=== PATIENT | female | born 1985 | race Caucasian/White ===

== ENCOUNTER 2016-08-08 23:24 | Emergency (ER) | payer SELFPAY ==
--- NOTE | 2016-08-08 23:34 | ER Document Report ---
ED Medical Screen (RME) - General Stated Complaint: CHEST PAIN Time seen by provider: 23:32 Mode of Arrival: Wheelchair Information source: Patient Notes: 31-year-old female presents to the rapid heartbeat and chest pain started just before she came. She states she has a daughter has SVT mother has A. fib. I have greeted and performed a rapid initial assessment of this patient. A comprehensive ED assessment and evaluation of the patient, analysis of test results and completion of medical decision making process will be conducted by an additional ED providers. - Related Data Allergies/Adverse Reactions: No Known Allergies Allergy (Unverified 08/08/16 23:30)
[2016-08-08] MEDS ORDERED: ADENOSINE INJ/PF 6 MG/2 ML SDV IV ONE ×3 (23:46→23:53)
[2016-08-08] MEDS ORDERED: NORMAL SALINE 1000 ML 1,000 ML IV PRN (23:53)
--- NOTE | 2016-08-08 23:55 | ER Document Report ---
ED Cardiac - General Chief Complaint: Chest Pain Stated Complaint: CHEST PAIN Time seen by provider: 23:55 Mode of Arrival: Ambulatory Information source: Patient TRAVEL OUTSIDE OF THE [place] IN LAST 30 DAYS: No - HPI Patient complains to provider of: Chest pain, Palpitations Was the onset of pain: Sudden Is the pain a: New problem Quality of pain: Pressure Chest pain precipitating factors: At Rest Cardiac risk factors: None Associated symptoms: Palpitations Exacerbated by: Denies Relieved by: Nothing Similar symptoms previously: No Recently seen / treated by doctor: No Notes: Patient is a 31-year-old female with no past medical history who presents to the emergency room complaining of rapid heart rate that started around 10:50 PM while she was at rest, she denies a history of similar symptoms previously she does report some chest pressure associated with the rapid heart rate, patient denies smoking, drinking or drug usage, she takes no [id number] medications or supplements, she does not consume energy drinks or caffeinated beverages, otherwise her day was pretty much routine, she reports that her daughter has a history of supraventricular tachycardia - Related Data Allergies/Adverse Reactions: No Known Allergies Allergy (Unverified 08/08/16 23:30) Past Medical History - General Information source: Patient - Social History Smoking Status: Never Smoker Chew tobacco use (# tins/day): No Frequency of alcohol use: None Drug Abuse: None Family History: Other - Daughter has a history of supraventricular tachycardia Renal/ Medical History: Denies: Hx Peritoneal Dialysis Review of Systems - Review of Systems Constitutional: No symptoms reported EENT: No symptoms reported Cardiovascular: See HPI Respiratory: No symptoms reported Gastrointestinal: No symptoms reported Genitourinary: No symptoms reported Female Genitourinary: No symptoms reported Musculoskeletal: No symptoms reported Skin: No symptoms reported Hematologic/Lymphatic: No symptoms reported Neurological/Psychological: No symptoms reported -: Yes All other systems reviewed and negative Physical Exam - Vital signs Vitals: Temp Pulse Resp BP Pulse Ox 97.9 F 184 H 20 132/70 H 100 08/08/16 23:32 08/08/16 23:32 08/08/16 23:32 08/08/16 23:32 08/08/16 23:32 Interpretation: Tachycardic - General General appearance: Appears well, Alert - HEENT Head: Normocephalic, Atraumatic Eyes: Normal Pupils: PERRL - Respiratory Respiratory status: No respiratory distress Chest status: Nontender Breath sounds: Normal Chest palpation: Normal - Cardiovascular Rhythm: Regular, Tachycardia Heart sounds: Normal auscultation Murmur: No - Abdominal Inspection: Normal Distension: No distension Bowel sounds: Normal Tenderness: Nontender Organomegaly: No organomegaly - Back Back: Normal, Nontender - Extremities General upper extremity: Normal inspection, Nontender, Normal color, Normal ROM , Normal temperature General lower extremity: Normal inspection, Nontender, Normal color, Normal ROM , Normal temperature, Normal weight bearing. No: Anita's sign - Neurological Neuro grossly intact: Yes Cognition: Normal Orientation: AAOx4 Michelle Coma Scale Eye Opening: Spontaneous Michelle Coma Scale Verbal: Oriented Michelle Coma Scale Motor: Obeys Commands [place] Coma Scale Total: 15 Speech: Normal Motor strength normal: LUE, RUE, LLE, RLE Sensory: Normal - Psychological Associated symptoms: Normal affect, Normal mood - Skin Skin Temperature: Warm Skin Moisture: Dry Skin Color: Normal Course - Re-evaluation Re-evalutation: 08/09/16 02:20 Lab and imaging findings discussed with patient at bedside, after one dose of adenosine SVT was reduced to a sinus tachycardia, patient was advised to follow- up with a bindery machine setter/set up operator within the next 1-2 days or return if symptoms worsen, patient acknowledges understanding and agreement with this plan 08/09/16 03:57 Vagal maneuvers and carotid massage were attempted prior to administering adenosine - Vital Signs Vital signs: Temp Pulse Resp BP Pulse Ox 97.9 F 184 H 23 H 114/82 98 08/08/16 23:32 08/08/16 23:32 08/09/16 03:01 08/09/16 03:01 08/09/16 03:01 - Laboratory Result Diagrams: 08/08/16 23:44 08/08/16 23:44 Laboratory results interpreted by me: 08/08/16 08/08/16 08/09/16 23:44 23:44 01:15 WBC 12.4 H Absolute Neutrophils 8.9 H Total Protein 8.8 H Urine Blood SMALL H Ur Leukocyte Esterase LARGE H - Diagnostic Test Radiology reviewed: Image reviewed, Reports reviewed - EKG Interpretation by Me Rate: Tachycardia Rhythm: SVT Additional EKG results interpreted by me: 08/09/16 02:21 Repeat EKG is normal sinus rhythm at a rate of 117 Critical Care Note - Critical Care Note Total time excluding time spent on procedures (mins): 30 Comments: Patient arrived with supraventricular tachycardia with a heart rate in the 180- 190 range, requiring one dose of adenosine Discharge - Discharge Clinical Impression: Supraventricular tachycardia Condition: Stable Disposition: HOME, SELF-CARE Instructions: Paroxysmal Supraventricular Tachycardia ([facility]) Additional Instructions: Follow-up with a bindery machine setter/set up operator within the next 1-2 days. Return to the emergency room immediately if symptoms worsen or any additional concerns. Forms: Return to Work Referrals: UMESH TEJADA MD [ACTIVE STAFF] - Follow up as needed SHARON GRIFFIN MD [ACTIVE STAFF] - Follow up as needed
[2016-08-09 00:23] LABS: ABSOLUTE EOSINOPHILS # (AUTO) 0.1 10^3/uL (0.0-0.6); ABSOLUTE LYMPHOCYTES (AUTO) 2.4 10^3/uL (0.5-4.7); ABSOLUTE MONOCYTES (AUTO) 0.9 10^3/uL (0.1-1.4); ABSOLUTE NEUT (AUTO) 8.9 10^3/uL (1.7-8.2); BASOPHILS % (AUTO) 0.3 % (0-2); HEMATOCRIT 44.7 % (36.0-47.0); HEMOGLOBIN 14.9 g/dL (12.0-15.5); LYMPHOCYTES % (AUTO) 19.7 % (13-45); MEAN CORPUSCULAR HGB CONC 33.4 g/dL (32.0-36.0); MEAN CORPUSCULAR VOLUME 90 fl (80-97); MONOCYTES % (AUTO) 7.1 % (3-13); RED BLOOD COUNT 4.97 10^6/uL (3.72-5.28); RED CELL DISTRIBUTION WIDTH 13.4 % (11.5-14.0); SEGMENTED NEUTROPHILS % (AUTO) 71.9 % (42-78); WHITE BLOOD COUNT 12.4 10^3/uL (4.0-10.5)
[2016-08-09 00:36] LABS: ALANINE AMINOTRANSFERASE 29 U/L (9-52); ALBUMIN 4.7 g/dL (3.5-5.0); ALKALINE PHOSPHATASE 120 U/L (38-126); ANION GAP 11 (5-19); ASPARTATE AMINO TRANSFERASE 31 U/L (14-36); BILIRUBIN,TOTAL 0.8 mg/dL (0.2-1.3); BLOOD UREA NITROGEN 11 mg/dL (7-20); CALCIUM 9.7 mg/dL (8.4-10.2); CARBON DIOXIDE 28 mmol/L (22-30); CHLORIDE 102 mmol/L (98-107); CREATINE KINASE 50 U/L (30-135); CREATININE RESULT 0.69 mg/dL (0.52-1.25); GLUCOSE 95 mg/dL (75-110); POTASSIUM 3.8 mmol/L (3.6-5.0); SODIUM 141.4 mmol/L (137-145); TOTAL PROTEIN 8.8 g/dL (6.3-8.2)
[2016-08-09 00:49] LABS: CREATINE KINASE MB < 0.22 ng/mL (<4.55); TROPONIN I < 0.012 ng/mL
[2016-08-09 01:35] LABS: APPEARANCE,URINE SLIGHTLY-CLOUDY; BILIRUBIN,URINE NEGATIVE (NEGATIVE); GLUCOSE, URINE NEGATIVE (NEGATIVE); KETONES,URINE NEGATIVE (NEGATIVE); LEUKOCYTE ESTERASE,URINE LARGE (NEGATIVE); NITRITE,URINE NEGATIVE (NEGATIVE); PROTEIN,URINE NEGATIVE (NEGATIVE); URINE SPECIFIC GRAVITY 1.005; UROBILINOGEN,URINE NEGATIVE mg/dL (<2.0)
[2016-08-09 01:48] LABS: URINE BARBITURATES SCREEN NEGATIVE; URINE METHADONE SCREEN NEGATIVE; URINE OPIATES LOW NEGATIVE; URINE PHENCYCLIDINE SCREEN NEGATIVE
[2016-08-09 01:50] LABS: FREE T3 4.2 pg/mL (2.77-5.27)
[2016-08-09 02:03] LABS: THYROID STIMULATING HORMONE 2.76 uIU/mL (0.47-4.68)
[2016-08-09 03:23] VITALS: BP 114/82
--- NOTE | 2016-08-09 12:32 | EKG REPORT ---
SEVERITY:- OTHERWISE NORMAL ECG - SINUS TACHYCARDIA : Confirmed by: Marquita Simpson 09-Aug-2016 12:31:22
--- NOTE | 2016-08-09 12:32 | EKG REPORT ---
SEVERITY:- ABNORMAL ECG - SUPRAVENTRICULAR TACHYCARDIA REPOLARIZATION ABNORMALITY, PROB RATE RELATED : Confirmed by: Marquita Simpson 09-Aug-2016 12:31:29
== END 2016-08-09 03:01 | disposition home or self-care (01) ==
LOC: ER 23:24
DX: I47.1 Supraventricular tachycardia (principal); R07.89 Other chest pain; Z82.49 Family history of ischemic heart disease and other diseases of the circulatory system
CPT/HCPCS: 36415; 71020; 80053; 80307; 81001; 82550; 82553; 84439; 84443; 84481; 84484; 84703; 85025; 93005; 93010; 99291

== ENCOUNTER 2016-12-16 19:56 | Emergency (ER) | payer BC ==
[2016-12-16 21:55] VITALS: BP 146/85
[2016-12-16] MEDS ORDERED: MECLIZINE HCL 25 MG TABLET PO ONE (23:34)
--- NOTE | 2016-12-16 23:34 | ER Document Report ---
HPI - HPI Patient complains to provider of: dizzy lightheaded Onset: Other - 3 days Quality of pain: No pain Pain Level: Denies Context: Presents emergency department with complaints of feeling lightheaded and dizzy for the past 3 days. Denies fever vomiting nausea diarrhea. Reports she is not because she is not sexually active. She reports it happened to her one time before when she had inner ear infection. Patient also has a history of SVT. Associated Symptoms: None Exacerbated by: Denies Relieved by: Denies Similar symptoms previously: Yes - when she had ear infection Recently seen / treated by doctor: No - REPRODUCTIVE LMP: 11/19/2016 - DERM Skin Color: Normal Past Medical History - General Information source: Patient Last Menstrual Period: last month reports she is not sexually active - Social History Smoking Status: Unknown if Ever Smoked Cigarette use (# per day): No Frequency of alcohol use: None Drug Abuse: None Family History: Other - Daughter has a history of supraventricular tachycardia - Past Medical History Cardiac Medical History: Reports: Other - svt Renal/ Medical History: Denies: Hx Peritoneal Dialysis Past Surgical History: Reports: Hx Section, Hx Dilation and Curettage, Hx Gynecologic Surgery - d&C Vertical Provider Document - CONSTITUTIONAL Agree With Documented VS: Yes Exam Limitations: No Limitations General Appearance: WD/WN, No Apparent Distress - INFECTION CONTROL TRAVEL OUTSIDE OF THE [place] IN LAST 30 DAYS: No - HEENT HEENT: Atraumatic, Normal ENT Exam, Normocephalic, PERRLA. negative: Conjuctival Injection, Pharyngeal Exudate, Pharyngeal Tenderness, Pharyngeal Erythema, Tympanic Membrane Red, Tympanic Membrane Bulging - NECK Neck: Normal Inspection, Supple. negative: Lymphadenopathy-Left, Lymphadenopathy-Right - RESPIRATORY Respiratory: Breath Sounds Normal, No Respiratory Distress O2 Sat by Pulse Oximetry: 98 - CARDIOVASCULAR Cardiovascular: Regular Rate, Regular Rhythm - GI/ABDOMEN Gastrointestinal: Abdomen Soft, Abdomen Non-Tender - MUSCULOSKELETAL/EXTREMETIES Musculoskeletal/Extremeties: RICHARD MCGEE - NEURO Level of Consciousness: Awake, Alert, Appropriate Motor/Sensory: No Motor Deficit - DERM Integumentary: Warm, Dry Course - Re-evaluation Re-evalutation: 12/17/16 00:30 Patient reports she feels much better denies any dizziness ready to go home. Instructed on meclizine. Instructed to follow-up with primary care provider. - Vital Signs Vital signs: Temp Pulse Resp BP Pulse Ox 98.2 F 89 16 146/85 H 98 12/16/16 20:23 12/16/16 20:23 12/16/16 20:23 12/16/16 20:23 12/16/16 20:23 - EKG Interpretation by Me EKG shows normal: Sinus rhythm Discharge - Discharge Clinical Impression: Dizziness, Elevated blood pressure reading Condition: Stable Disposition: HOME, SELF-CARE Instructions: Meclizine ([facility]), Dizziness ([facility]) Additional Instructions: *You have been evaluated for dizziness and lightheaded feeling *Take medication as prescribed *Rest, stay hydrated *Follow up with a primary care provider within one week for recheck *Return to ED for worsening condition, changes, needs Monitor your blood pressure. Your blood pressure was elevated today. This may be because you were anxious, in pain or because you need medication. It is important to follow up with your primary care provider for full evaluation. Prescriptions: Meclizine HCl [Dramamine Less Drowsy] 25 mg PO BID #15 tablet Forms: Elevated Blood Pressure Referrals: NILO HERNÁNDEZ DO [Primary Care Provider] - Follow up in 1 week
--- NOTE | 2016-12-17 07:50 | EKG REPORT ---
SEVERITY:- NORMAL ECG - SINUS RHYTHM : Confirmed by: Marquita Simpson 17-Dec-2016 07:49:40
== END 2016-12-17 00:50 | disposition home or self-care (01) ==
LOC: ER 19:56
DX: R42 Dizziness and giddiness (principal); R03.0 Elevated blood-pressure reading, without diagnosis of hypertension
CPT/HCPCS: 93005; 93010; 99284

== ENCOUNTER 2017-04-02 13:11 | Emergency (ER) | payer BC, MEDICAID ==
--- NOTE | 2017-04-02 14:13 | ER Document Report ---
HPI - HPI Patient complains to provider of: dental pain Pain Level: 4 Context: 31 yo female c/o pain and swelling to left side of mouth x 2 weeks. no fever Associated Symptoms: None Exacerbated by: Denies Relieved by: Denies Similar symptoms previously: Yes Recently seen / treated by doctor: No - ROS Systems Reviewed and Negative: Yes All other systems reviewed and negative Past Medical History - General Information source: Patient - Social History Smoking Status: Never Smoker Chew tobacco use (# tins/day): No Frequency of alcohol use: None Drug Abuse: None Lives with: Family Family History: Reviewed & Not Pertinent, Other - Daughter has a history of supraventricular tachycardia - Medical History Medical History: Negative Renal/ Medical History: Denies: Hx Peritoneal Dialysis Psychiatric Medical History: Reports: Hx Attention Deficit Hyperactivity Disorder Past Surgical History: Reports: Hx Section, Hx Dilation and Curettage, Hx Gynecologic Surgery - d&C - Immunizations Hx Diphtheria, Pertussis, Tetanus Vaccination: Yes Vertical Provider Document - CONSTITUTIONAL Agree With Documented VS: Yes Exam Limitations: No Limitations - INFECTION CONTROL TRAVEL OUTSIDE OF THE [place] IN LAST 30 DAYS: No - HEENT HEENT: Atraumatic, PERRLA Mouth Diagram: 1 - + pain and gingival swelling - NECK Neck: Normal Inspection, Supple - RESPIRATORY Respiratory: Breath Sounds Normal O2 Sat by Pulse Oximetry: 99 - CARDIOVASCULAR Cardiovascular: Regular Rate, Regular Rhythm Course - Re-evaluation Re-evalutation: 04/02/17 14:10 H&P c/w dental infection. no airway compromise. no s/s ludwigs or peritonsillar abscess - Vital Signs Vital signs: Temp Pulse Resp BP Pulse Ox 98.9 F 80 17 152/101 H 99 04/02/17 13:22 04/02/17 13:22 04/02/17 13:22 04/02/17 13:22 04/02/17 13:22 Discharge - Discharge Clinical Impression: Dental infection Condition: Stable Disposition: HOME, SELF-CARE Instructions: Antibiotic Therapy ([facility]), Dental Infection or Abscess ([facility]), Oral Narcotic Medication ([facility]) Prescriptions: Hydrocodone/Acetaminophen [Camp 5-325 mg Tablet] 1 tab PO Q4H PRN #10 tablet PRN Reason: Penicillin V Potassium [Penicillin Vk 500 mg Tablet] 500 mg PO BID #20 tablet
[2017-04-02] MEDS ORDERED: PENICILLIN V POTASSIUM 500 MG TABLET PO ONE (14:17)
[2017-04-02] MEDS ORDERED: HYDROCODONE/ACETAMINOPHEN 5-325 MG TABLET PO ONE (14:18)
[2017-04-02 14:33] VITALS: BP 126/77
== END 2017-04-02 14:31 | disposition home or self-care (01) ==
LOC: ER 13:11
DX: K04.7 Periapical abscess without sinus (principal); K08.89 Other specified disorders of teeth and supporting structures; R22.0 Localized swelling, mass and lump, head
CPT/HCPCS: 99282; J3490

== ENCOUNTER 2017-06-12 13:25 | Emergency (ER) | payer MEDICAID ==
[2017-06-12 14:43] LABS: ABSOLUTE BASOPHILS # (AUTO) 0.1 10^3/uL (0.0-0.2); ABSOLUTE EOSINOPHILS # (AUTO) 0.1 10^3/uL (0.0-0.6); ABSOLUTE LYMPHOCYTES (AUTO) 1.4 10^3/uL (0.5-4.7); ABSOLUTE MONOCYTES (AUTO) 0.6 10^3/uL (0.1-1.4); ABSOLUTE NEUT (AUTO) 8.2 10^3/uL (1.7-8.2); BASOPHILS % (AUTO) 0.7 % (0-2); EOSINOPHILS % (AUTO) 1.1 % (0-6); HEMATOCRIT 41.9 % (36.0-47.0); HEMOGLOBIN 14.3 g/dL (12.0-15.5); LYMPHOCYTES % (AUTO) 13.8 % (13-45); MEAN CORPUSCULAR HEMOGLOBIN 30.1 pg (27.0-33.4); MEAN CORPUSCULAR HGB CONC 34.2 g/dL (32.0-36.0); MEAN CORPUSCULAR VOLUME 88 fl (80-97); MONOCYTES % (AUTO) 5.3 % (3-13); RED BLOOD COUNT 4.76 10^6/uL (3.72-5.28); RED CELL DISTRIBUTION WIDTH 13.7 % (11.5-14.0); SEGMENTED NEUTROPHILS % (AUTO) 79.1 % (42-78); WHITE BLOOD COUNT 10.4 10^3/uL (4.0-10.5)
[2017-06-12 14:49] LABS: AMORPHOUS SEDIMENT,URINE TRACE /HPF; APPEARANCE,URINE CLOUDY; BILIRUBIN,URINE NEGATIVE (NEGATIVE); GLUCOSE, URINE NEGATIVE (NEGATIVE); KETONES,URINE NEGATIVE (NEGATIVE); LEUKOCYTE ESTERASE,URINE LARGE (NEGATIVE); NITRITE,URINE NEGATIVE (NEGATIVE); PROTEIN,URINE NEGATIVE (NEGATIVE); URINE SPECIFIC GRAVITY 1.008
[2017-06-12 15:00] LABS: ANION GAP 9 (5-19); BLOOD UREA NITROGEN 9 mg/dL (7-20); CALCIUM 9.7 mg/dL (8.4-10.2); CARBON DIOXIDE 30 mmol/L (22-30); CHLORIDE 103 mmol/L (98-107); GLUCOSE 96 mg/dL (75-110); POTASSIUM 4.2 mmol/L (3.6-5.0); SODIUM 142.4 mmol/L (137-145)
--- NOTE | 2017-06-12 15:05 | ER Document Report ---
ED Cardiac - General Chief Complaint: Palpitations Stated Complaint: CHEST PAIN Time Seen by Provider: 06/12/17 13:58 Notes: Patient states that she has a history of SVT and has had to receive adenosine before. Today she had an episode of palpitations with her heart racing and she felt short of breath. Nothing made it better or worse. It lasted approximately 30 minutes. She states that she feels better now that she is in the emergency department but still has some shortness of breath. She denies smoking or any type of hormone use. No previous history of PEs or DVTs. Patient denies any significant chest pain. The symptoms are moderate. They were intermittent. There is no known radiation of the symptoms. Patient has not recently had any type of cough cold or congestion. No nausea vomiting or diarrhea. Patient states she did have an energy drink. TRAVEL OUTSIDE OF THE [place] IN LAST 30 DAYS: No - Related Data Allergies/Adverse Reactions: No Known Allergies Allergy (Verified 04/02/17 13:25) Home Medications: Current Home Medications Atomoxetine HCl [Strattera 60 mg Capsule] 60 mg PO DAILY 06/12/17 [History] Diltiazem HCl [Diltiazem 24Hr ER] 120 mg PO DAILY 06/12/17 [History] Past Medical History - General Information source: Patient - Social History Smoking Status: Never Smoker Frequency of alcohol use: Rare Drug Abuse: None Family History: Reviewed & Not Pertinent, Other - Daughter has a history of supraventricular tachycardia Patient has suicidal ideation: No Patient has homicidal ideation: No Renal/ Medical History: Denies: Hx Peritoneal Dialysis Psychiatric Medical History: Reports: Hx Attention Deficit Hyperactivity Disorder Past Surgical History: Reports: Hx Section, Hx Dilation and Curettage, Hx Gynecologic Surgery - d&C - Immunizations Hx Diphtheria, Pertussis, Tetanus Vaccination: Yes Review of Systems - Review of Systems Constitutional: denies: Chills, Fever Cardiovascular: Chest pain, Palpitations Respiratory: Short of breath. denies: Cough Gastrointestinal: denies: Abdominal pain, Diarrhea, Vomiting -: Yes All other systems reviewed and negative Physical Exam - Vital signs Vitals: Temp Pulse Resp BP Pulse Ox 98.5 F 98 16 152/76 H 99 06/12/17 13:35 06/12/17 13:35 06/12/17 13:35 06/12/17 13:35 06/12/17 13:35 Interpretation: Hypertensive - General General appearance: Appears well, Alert - HEENT Head: Normocephalic, Atraumatic Eyes: Normal Pupils: PERRL - Respiratory Respiratory status: No respiratory distress Chest status: Nontender Breath sounds: Normal Chest palpation: Normal - Cardiovascular Rhythm: Regular Heart sounds: Normal auscultation Murmur: No - Abdominal Inspection: Normal Distension: No distension Bowel sounds: Normal Tenderness: Nontender Organomegaly: No organomegaly - Back Back: Normal, Nontender - Extremities General upper extremity: Normal inspection, Nontender, Normal color, Normal ROM , Normal temperature General lower extremity: Normal inspection, Nontender, Normal color, Normal ROM , Normal temperature, Normal weight bearing. No: Anita's sign - Neurological Neuro grossly intact: Yes Cognition: Normal Orientation: AAOx4 Michelle Coma Scale Eye Opening: Spontaneous Michelle Coma Scale Verbal: Oriented [place] Coma Scale Motor: Obeys Commands Michelle Coma Scale Total: 15 Speech: Normal Motor strength normal: LUE, RUE, LLE, RLE Sensory: Normal - Psychological Associated symptoms: Normal affect, Normal mood - Skin Skin Temperature: Warm Skin Moisture: Dry Skin Color: Normal Course - Vital Signs Vital signs: Temp Pulse Resp BP Pulse Ox 98.5 F 98 16 152/76 H 99 06/12/17 13:35 06/12/17 13:35 06/12/17 13:35 06/12/17 13:35 06/12/17 13:35 - Laboratory Result Diagrams: 06/12/17 14:30 06/12/17 14:30 Laboratory results interpreted by me: 06/12/17 06/12/17 14:30 14:30 Seg Neutrophils % 79.1 H Urine Urobilinogen 2.0 H Ur Leukocyte Esterase LARGE H - EKG Interpretation by Me EKG shows normal: Sinus rhythm Rate: Normal Rhythm: NSR Pepin/QRS: No: Right axis deviation, Left axis deviation Discharge - Discharge Clinical Impression: Palpitations Urinary tract infection Qualifiers: Urinary tract infection type: site unspecified Hematuria presence: without hematuria Qualified Code(s): N39.0 - Urinary tract infection, site not specified Condition: Stable Disposition: HOME, SELF-CARE Instructions: Urinary Tract Infection ([facility]), Palpitations (Irregular or Rapid Heartrate) ([facility]) Additional Instructions: Your blood pressure is elevated please have this rechecked within 1 week by your doctor. Prescriptions: Nitrofurantoin/Nitrofuran Mac [Macrobid 100 mg Capsule] 1 tab PO BID 3 Days #6 capsule Forms: Return to Work, Elevated Blood Pressure Referrals: NUNO VILLALBA MD [ACTIVE STAFF] - Follow up as needed
[2017-06-12 15:14] VITALS: BP 134/75
--- NOTE | 2017-06-12 17:55 | EKG REPORT ---
SEVERITY:- BORDERLINE ECG - SINUS RHYTHM BORDERLINE T WAVE ABNORMALITIES : Confirmed by: Hussain Ruiz MD 12-Jun-2017 17:55:22
== END 2017-06-12 15:19 | disposition home or self-care (01) ==
LOC: ER 13:25
DX: N39.0 Urinary tract infection, site not specified (principal); R00.2 Palpitations; R07.9 Chest pain, unspecified; R06.02 Shortness of breath; Z79.899 Other long term (current) drug therapy
CPT/HCPCS: 36415; 80048; 81001; 81025; 85025; 93005; 93010; 99285

== ENCOUNTER → 2018-02-23 | Outpatient (CLI) | payer MEDICAID | LOC: LAB 13:02 | PROVIDERS: ATTEND Nurse Practitioner Acute Care | DX: R30.0 Dysuria (principal) | CPT/HCPCS: 87086; 87088; 87186 ==

== ENCOUNTER 2018-08-08 20:05 | Emergency (ER) | payer MEDICAID ==
[2018-08-08] MEDS ORDERED: RINGERS SOLUTION,LACTATED 1,000 ML IV ONE (20:44)
[2018-08-08] MEDS ORDERED: ONDANSETRON HCL INJ/PF 4 MG/2 ML SDV IV ONE (20:45)
--- NOTE | 2018-08-08 20:46 | ER Document Report ---
ED Medical Screen (RME) - General Chief Complaint: Shortness Of Breath Stated Complaint: VOMITING Time Seen by Provider: 08/08/18 20:39 Primary Care Provider: DANIELA BAER NP [Primary Care Provider] - Follow up as needed Mode of Arrival: Ambulatory Information source: Patient Notes: 33-year-old female with a history of SVT (metoprolol, Cardizem) who presents to the emergency room with nausea, vomiting, cough with chest tightness and shortness of breath. Patient started feeling bad 3 days ago. Symptoms have persisted. She has had multiple sick contacts. Oxygen saturation 98% on room air. TRAVEL OUTSIDE OF THE [place] IN LAST 30 DAYS: No - Related Data Allergies/Adverse Reactions: No Known Allergies Allergy (Verified 04/02/17 13:25) Past Medical History Renal/ Medical History: Denies: Hx Peritoneal Dialysis Psychiatric Medical History: Reports: Hx Attention Deficit Hyperactivity Disorder Past Surgical History: Reports: Hx Section, Hx Dilation and Curettage, Hx Gynecologic Surgery - d&C - Immunizations Hx Diphtheria, Pertussis, Tetanus Vaccination: Yes History of Influenza Vaccine for 03/2017 - 08/2017 Season: Yes Physical Exam - Vital signs Vitals: Temp Pulse Resp BP Pulse Ox 99.8 F 107 H 14 132/72 H 98 08/08/18 20:17 08/08/18 20:17 08/08/18 20:17 08/08/18 20:17 08/08/18 20:17 Course - Vital Signs Vital signs: Temp Pulse Resp BP Pulse Ox 99.8 F 107 H 14 132/72 H 98 08/08/18 20:17 08/08/18 20:17 08/08/18 20:17 08/08/18 20:17 08/08/18 20:17 Doctor's Discharge - Discharge Referrals: DANIELA BAER NP [Primary Care Provider] - Follow up as needed
--- NOTE | 2018-08-08 21:31 | RADIOLOGY REPORT (SQ) ---
XR CHEST 2 VIEWS HISTORY: cough. COMPARISON: 08/08/2016 FINDINGS: The heart size is normal. The lungs are clear. No pleural effusions or pneumothorax is seen. No acute bony findings. IMPRESSION: No evidence of acute cardiopulmonary disease.
[2018-08-08 21:53] LABS: ABSOLUTE LYMPHOCYTES (AUTO) 1.3 10^3/uL (0.5-4.7); ABSOLUTE MONOCYTES (AUTO) 2.1 10^3/uL (0.1-1.4); ABSOLUTE NEUT (AUTO) 12.1 10^3/uL (1.7-8.2); BASOPHILS % (AUTO) 0.2 % (0-2); EOSINOPHILS % (AUTO) 0.1 % (0-6); HEMATOCRIT 37.7 % (36.0-47.0); HEMOGLOBIN 13.3 g/dL (12.0-15.5); LYMPHOCYTES % (AUTO) 8.2 % (13-45); MEAN CORPUSCULAR HGB CONC 35.3 g/dL (32.0-36.0); MEAN CORPUSCULAR VOLUME 88 fl (80-97); MONOCYTES % (AUTO) 13.3 % (3-13); PLATELET COUNT 267 10^3/uL (150-450); RED CELL DISTRIBUTION WIDTH 13.4 % (11.5-14.0); SEGMENTED NEUTROPHILS % (AUTO) 78.2 % (42-78); TOTAL CELLS COUNTED % (AUTO) 100 %; WHITE BLOOD COUNT 15.4 10^3/uL (4.0-10.5)
[2018-08-08 22:00] LABS: APPEARANCE,URINE CLOUDY; BILIRUBIN,URINE NEGATIVE (NEGATIVE); GLUCOSE, URINE NEGATIVE (NEGATIVE); KETONES,URINE TRACE mg/dL (NEGATIVE); LEUKOCYTE ESTERASE,URINE LARGE (NEGATIVE); NITRITE,URINE NEGATIVE (NEGATIVE); PROTEIN,URINE 100 mg/dL (NEGATIVE); URINE SPECIFIC GRAVITY 1.019
[2018-08-08 22:01] LABS: COLOR,URINE YELLOW
[2018-08-08 22:08] LABS: A TYPE INFLUENZA AG NEGATIVE (NEGATIVE); B INFLUENZA AG NEGATIVE (NEGATIVE)
[2018-08-08 22:11] LABS: ALANINE AMINOTRANSFERASE 32 U/L (9-52); ALBUMIN 3.9 g/dL (3.5-5.0); ALKALINE PHOSPHATASE 89 U/L (38-126); ANION GAP 13 (5-19); ASPARTATE AMINO TRANSFERASE 21 U/L (14-36); BILIRUBIN,DIRECT 0.9 mg/dL (0.0-0.4); BILIRUBIN,TOTAL 1.8 mg/dL (0.2-1.3); BLOOD UREA NITROGEN 15 mg/dL (7-20); CARBON DIOXIDE 29 mmol/L (22-30); CHLORIDE 97 mmol/L (98-107); GLUCOSE 103 mg/dL (75-110); LIPASE 32.5 U/L (23-300); POTASSIUM 3.5 mmol/L (3.6-5.0); TOTAL PROTEIN 7.2 g/dL (6.3-8.2)
[2018-08-08] MEDS ORDERED: CEFTRIAXONE INJ 1000 MG VIAL IV ONE (23:31)
--- NOTE | 2018-08-08 23:50 | ER Document Report ---
ED General - General Chief Complaint: Shortness Of Breath Stated Complaint: VOMITING Time Seen by Provider: 08/08/18 20:39 Primary Care Provider: DANIELA BAER NP [NURSE PRACTITIONER] - Follow up tomorrow Mode of Arrival: Ambulatory Notes: Patient is a 33-year-old female with a past medical history of supraventricular tachycardia who presents complaining of 2-3 days of nausea, vomiting, dysuria, and has also noted in the past 24 hours she has had a mild, nonproductive cough with some mild shortness of breath. Symptoms have started gradually, increasing since onset. Nothing improves or worsens her symptoms. Denies history of similar symptoms in the past. Has not seen her primary care physician regarding today's concerns. He does note a dull, throbbing, constant discomfort to her bilateral flanks. Has had fever at home. Denies headache, neck pain, focal weakness or numbness. TRAVEL OUTSIDE OF THE [place] IN LAST 30 DAYS: No - Related Data Allergies/Adverse Reactions: No Known Allergies Allergy (Verified 04/02/17 13:25) Past Medical History - General Information source: Patient - Social History Smoking Status: Never Smoker Frequency of alcohol use: None Drug Abuse: None Family History: Reviewed & Not Pertinent, Other - Daughter has a history of supraventricular tachycardia Patient has suicidal ideation: No Patient has homicidal ideation: No Renal/ Medical History: Denies: Hx Peritoneal Dialysis Psychiatric Medical History: Reports: Hx Attention Deficit Hyperactivity Disorder Past Surgical History: Reports: Hx Section, Hx Dilation and Curettage, Hx Gynecologic Surgery - d&C - Immunizations Hx Diphtheria, Pertussis, Tetanus Vaccination: Yes Review of Systems - Review of Systems Notes: Constitutional: Positive for fever. HENT: Negative for sore throat. Eyes: Negative for visual changes. Cardiovascular: Negative for palpitations Respiratory: Positive for chest tightness and cough Gastrointestinal: Negative for abdominal pain, positive for nausea and vomiting Genitourinary: Positive for dysuria. Musculoskeletal: Negative for back pain. Skin: Negative for rash. Neurological: Negative for headaches, weakness or numbness. 10 point ROS negative except as marked above and in HPI. Physical Exam - Vital signs Vitals: Temp Pulse Resp BP Pulse Ox 99.8 F 107 H 14 132/72 H 98 08/08/18 20:17 08/08/18 20:17 08/08/18 20:17 08/08/18 20:17 08/08/18 20:17 Interpretation: Tachycardic - Resolved at the time of my assessment at heart rate of 92 Notes: PHYSICAL EXAMINATION: GENERAL: Well-appearing, well-nourished and in no acute distress. HEAD: Atraumatic, normocephalic. EYES: Pupils equal round and reactive to light, extraocular movements intact, sclera anicteric, conjunctiva are normal. ENT: nares patent, oropharynx clear without exudates. Moderate dry mucous membranes. NECK: Normal range of motion, supple without lymphadenopathy LUNGS: Breath sounds clear to auscultation bilaterally and equal. No wheezes rales or rhonchi. HEART: Regular rate and rhythm without murmurs ABDOMEN: Soft, nontender, normoactive bowel sounds. No guarding, no rebound. No masses appreciated. Bilateral CVA tenderness present. EXTREMITIES: Normal range of motion, no pitting or edema. No cyanosis. NEUROLOGICAL: No focal neurological deficits. Moves all extremities spontaneously and on command. PSYCH: Normal mood, normal affect. SKIN: Warm, Dry, normal turgor, no rashes or lesions noted. Course - Re-evaluation Re-evalutation: 08/08/18 23:48 Presentation is most consistent with acute pyelonephritis. Laboratories do demonstrate a large amount of white blood cells in the urine as well as bacteria. Patient has had constitutional symptoms at home as well as a fever. CVA tenderness is present on exam. The remainder laboratories are relatively unremarkable without evidence of renal dysfunction. I do not suspect an acute appendicitis, biliary pathology, pancreatitis, intra-abdominal abscess, or tubo- ovarian abscess based on history and examination. Patient did complain of some respiratory symptoms and may have an associated viral upper respiratory infection. Influenza testing normal. Chest x-ray without any evidence of an acute pneumonia. Patient has been given a dose of IV ceftriaxone and a liter of fluids. Patient is able to tolerate oral intake without difficulty. Will be discharged home on 7 day course of cephalexin. A urine culture has been sent. At this time will discharge with return precautions and follow-up recommendations. Verbal discharge instructions given a the bedside and opportunity for questions given. Medication warnings reviewed. Patient is in agreement with this plan and has verbalized understanding of return precautions and the need for primary care follow-up in the next 24-72 hours. - Vital Signs Vital signs: Temp Pulse Resp BP Pulse Ox 99.1 F 107 H 14 132/72 H 98 08/08/18 23:37 08/08/18 20:17 08/08/18 20:17 08/08/18 20:17 08/08/18 20:17 - Laboratory Result Diagrams: 08/08/18 21:45 08/08/18 21:45 Laboratory results interpreted by me: 08/08/18 08/08/18 08/08/18 21:37 21:45 21:45 WBC 15.4 H Seg Neutrophils % 78.2 H Lymphocytes % 8.2 L Monocytes % 13.3 H Absolute Neutrophils 12.1 H Absolute Monocytes 2.1 H Potassium 3.5 L Chloride 97 L Total Bilirubin 1.8 H Direct Bilirubin 0.9 H Urine Protein 100 H Urine Ketones TRACE H Urine Blood MODERATE H Urine Urobilinogen 4.0 H Ur Leukocyte Esterase LARGE H Urine Ascorbic Acid 40 H - Diagnostic Test Radiology reviewed: Image reviewed, Reports reviewed Radiology results interpreted by me: 08/08/18 23:49 Chest x-ray: No acute infiltrate or pneumothorax - EKG Interpretation by Me Additional EKG results interpreted by me: 08/08/18 23:49 Sinus rhythm, rate 96. No ST elevations or depressions. QTC is 425. Discharge - Discharge Clinical Impression: Pyelonephritis, Nausea, Generalized body aches, Viral upper respiratory infection Condition: Good Disposition: HOME, SELF-CARE Additional Instructions: You have been diagnosed with a condition called pyelonephritis which is an infection involving your kidneys and bladder. You have been given a dose of antibiotics here in the emergency department to help begin to treat this infection. Your also being sent home on antibiotics. Please start taking these later on today when you fill the prescription. Complete the course even if you feel better. Please return if you have persistent vomiting, pass out, have worsening pain, become unable to tolerate fluids, or have any other symptoms that are concerning to you. Please follow-up with your primary care physician in the next 24-48 hours. Prescriptions: Cephalexin Monohydrate [Keflex 500 mg Capsule] 500 mg PO Q6H 7 Days capsule Referrals: DANIELA BAER, ROSEANN [NURSE PRACTITIONER] - Follow up tomorrow
[2018-08-09] MEDS ORDERED: ONDANSETRON ODT 4 MG TAB (6 TAB/ER DISP) PO PRN (01:27)
[2018-08-09 01:32] VITALS: BP 128/68
--- NOTE | 2018-08-09 13:06 | EKG REPORT ---
SEVERITY:- BORDERLINE ECG - SINUS RHYTHM BORDERLINE T ABNORMALITIES, INFERIOR LEADS : Confirmed by: Daiana Holland MD 09-Aug-2018 13:06:02
== END 2018-08-09 01:31 | disposition home or self-care (01) ==
LOC: ER 20:05
DX: N12 Tubulo-interstitial nephritis, not specified as acute or chronic (principal); J06.9 Acute upper respiratory infection, unspecified; B97.89 Other viral agents as the cause of diseases classified elsewhere; M79.10 Myalgia, unspecified site; R06.02 Shortness of breath; R11.2 Nausea with vomiting, unspecified; R30.0 Dysuria; R05 Cough
CPT/HCPCS: 93005; 36415; 87086; 83690; 85025; 81025; 87088; 80053; 81001; 87186; 87804; 71046; 93010; J0696; J2405; J7120

== ENCOUNTER 2019-04-05 23:01 | Emergency (ER) | payer MEDICAID ==
[2019-04-05 23:07] VITALS: BP 139/77
--- NOTE | 2019-04-06 00:16 | ER Document Report ---
HPI - HPI Patient complains to provider of: rash Time Seen by Provider: 04/05/19 23:57 Pain Level: 2 Context: Patient is a 33-year-old female presents to the emergency department for a rash. Patient was she had a rash on her left flank. States she was treated with Keflex and ketoconazole. States she has taken the full prescription of Keflex with only slight improvement. States today she noticed a generalized rash to her chest which is why she presents to the emergency room. Patient voices she did place ketoconazole ointment on the chest rash today with no improvement. Patient is denying any respiratory distress, vomiting, diarrhea. - REPRODUCTIVE LMP: none Reproductive: DENIES: : Past Medical History - General Information source: Patient - Social History Smoking Status: Never Smoker Family History: Reviewed & Not Pertinent, Other - Daughter has a history of supraventricular tachycardia Patient has suicidal ideation: No Patient has homicidal ideation: No Renal/ Medical History: Denies: Hx Peritoneal Dialysis Psychiatric Medical History: Reports: Hx Attention Deficit Hyperactivity Disorder Past Surgical History: Reports: Hx Section, Hx Dilation and Curettage, Hx Gynecologic Surgery - d&C - Immunizations Hx Diphtheria, Pertussis, Tetanus Vaccination: Yes Vertical Provider Document - CONSTITUTIONAL Agree With Documented VS: Yes Notes: GENERAL: Alert, interacts well. No acute distress. HEAD: Normocephalic, atraumatic. EYES: Pupils equal, round, and reactive to light. Extraocular movements intact. ENT: Oral mucosa moist, tongue midline. NECK: Full range of motion. Supple. Trachea midline. LUNGS: Clear to auscultation bilaterally, no wheezes, rales, or rhonchi. No respiratory distress. HEART: Regular rate and rhythm. No murmur ABDOMEN: Soft, non-tender. Non-distended. Bowel sounds present in all 4 quadrants. EXTREMITIES: Moves all 4 extremities spontaneously. No edema, normal radial and dorsalis pedis pulses bilaterally. No cyanosis. BACK: no cervical, thoracic, lumbar midline tenderness. No saddle anesthesia, normal distal neurovascular exam. NEUROLOGICAL: Alert and oriented x3. Normal speech. cranial nerves II through XII grossly intact. PSYCH: Normal affect, normal mood. SKIN: Warm, dry, normal turgor. rashed erythematous dry patch noted left hip, no vesicles noted. blisters noted with surrounding flat erythematous skin noted anterior chest. - INFECTION CONTROL TRAVEL OUTSIDE OF THE [place] IN LAST 30 DAYS: No Course - Re-evaluation Re-evalutation: 04/06/19 00:16 discussed with pt. most likely dx of contact dermatitis. Patient reports no new exposure to lotions, detergent, perfumes. Patient's physical exam is not consistent with an abscess, left hip is erythematous and raised but non-fluctuant. Will treat for cellulitis. Rash noted to chest does appear as though patient has been itching at it does appear excoriated. Discussed need to follow-up with dermatology primary care provider. Patient stable for discharge. At this time will discharge with return precautions and follow-up recommendations. Verbal discharge instructions given a the bedside and opportunity for questions given. Medication warnings reviewed. Patient is in agreement with this plan and has verbalized understanding of return precautions and the need for primary care follow-up in the next 24-72 hours. - Vital Signs Vital signs: Temp Pulse Resp BP Pulse Ox 98.3 F 86 18 139/77 H 97 04/05/19 23:05 04/05/19 23:05 04/05/19 23:05 04/05/19 23:05 04/05/19 23:05 Discharge - Discharge Clinical Impression: Excoriated rash Cellulitis Qualifiers: Site of cellulitis: trunk Site of cellulitis of trunk: unspecified site Qualified Code(s): L03.319 - Cellulitis of trunk, unspecified Condition: Stable Disposition: HOME, SELF-CARE Instructions: Cellulitis ([facility]) Additional Instructions: As we discussed you have been seen and treated in the emergency department for your generalized rash. Please take medications as prescribed. Please follow-up with dermatology in the next 24 to 48 hours. Please return to the emergency room for any concerns. Prescriptions: Sulfamethoxazole/Trimethoprim [Bactrim Ds Tablet] 1 each PO BID 7 Days #14 tablet Referrals: TREVON FOSTER FNP-C [Primary Care Provider] - Follow up as needed SHELLIE HERRERA MD [ACTIVE PROVISIONAL STAFF] - Follow up as needed PEARL MCCLURE DO [ACTIVE STAFF] - Follow up as needed
== END 2019-04-06 00:54 | disposition home or self-care (01) ==
LOC: ER 23:01
DX: R21 Rash and other nonspecific skin eruption (principal); L03.319 Cellulitis of trunk, unspecified
CPT/HCPCS: 99282

== ENCOUNTER → 2019-11-01 | Outpatient (CLI) | payer MEDICAID | LOC: OD 14:58 | PROVIDERS: ATTEND Nurse Practitioner Family | DX: N91.2 Amenorrhea, unspecified (principal) | CPT/HCPCS: 36415; 84702 ==